=== PATIENT | male | born 1950 | race African-American/Black ===

== ENCOUNTER 2016-07-31 20:23 | Inpatient (IN) | payer OTHER, MEDICAID ==
[~2016-07-31] VITALS: Ht 179.1 cm; Wt 74.9 kg
[~2016-07-31 20:23] MED LIST: ALBU0.08 HHN; ASPI81CH43 PO; ATOR20TA PO; CARV12.544 PO; ENAL2.5T PO; FURO40TA4 PO; MAGN400T23 PO; NITR0.2D12 TD; OXY5T GT; RANO500T PO; SPIR25TA89 PO
[2016-07-31] MEDS ORDERED: FAMOTIDINE (10MG/ML) 2ML VL IV ONE (21:30)
[2016-07-31] MEDS ORDERED: IPRATROPIUM BROM 0.5 MG/2.5ML INH SOL NEB ONE (21:30)
[2016-07-31] MEDS ORDERED: ONDANSETRON HCL 4 MG/2 ML VIAL IV ONE (21:30)
[2016-07-31] MEDS ORDERED: ALBUTEROL SULF 2.5 MG/0.5ML(0.5%) NEB SOLN NEB ONE (21:30)
[2016-07-31 21:55] LABS: Basophils # (auto) 0 uL; Eosinophils # (auto) 0 uL; Hematocrit 40.5 % (41.0-53.0); Hemoglobin 13.2 g/dL (13.5-17.5); Lymphocytes # (auto) 0.6 uL; Lymphocytes % (auto) 4.1 % (10.0-50.0); Mean Corpuscular Hemoglobin 28.8 pg (28.0-32.0); Mean Corpuscular Hgb Conc. 32.5 g/dL (32.0-36.0); Mean Corpuscular Volume 88.6 fL (80.0-100.0); Mean Platelet Volume 10.6 fL (7.4-10.4); Monocytes # (auto) 0.7 uL; Monocytes % (auto) 4.5 % (0.0-12.0); Neutrophils # (auto) 14.3 uL; Neutrophils % (auto) 91.4 % (37.0-80.0); Platelet Count (auto) 154 10^3/uL (140-450); White Blood Cell 15.7 10^3/uL (4.4-10.8)
[2016-07-31 22:21] LABS: Albumin 3.7 g/dL (3.4-5.0); BUN/Creatinine Ratio 24.9; Bilirubin, Total 0.5 mg/dL (0.2-1.0); Calcium 8.8 mg/dL (8.5-10.1); Total Protein 6.9 g/dL (6.4-8.2)
[2016-07-31 22:39] LABS: Potassium 5.6 mmol/L (3.5-5.1)
[2016-07-31 22:48] LABS: B-Type Natriuretic Peptide 1567.5 pg/mL (0-100); Temperature: 23.4 C (20.0-25.0)
[2016-07-31] MEDS ORDERED: SODIUM POLYSTYRENE SULF 15GM/60ML SUSP PO ONE (23:00)
[2016-08-01] VITALS (7 sets, daily range): BP systolic 91–115; BP diastolic 67–73
[2016-08-01] MEDS ORDERED: FUROSEMIDE 20 MG/2 ML VIAL IV ONE (00:15)
[2016-08-01] MEDS ORDERED: NITROGLYCERIN 0.4 MG SL TAB SL PRN (02:00)
[2016-08-01] MEDS ORDERED: guaiFENesin 200 MG/10 ML UD PO PRN (02:00)
[2016-08-01] MEDS ORDERED: MORPHINE SULF INJ 2 MG/ML SYRINGE 1ML IV PRN (02:00)
[2016-08-01] MEDS ORDERED: OXYCODONE W/ ACETAMINOPHEN 5/325MG TABLET PO PRN (02:15)
[2016-08-01 04:15] LABS: Urine Bilirubin Negative (Negative); Urine Blood Negative /uL (Negative); Urine Color Yellow (Yellow); Urine Glucose Normal (Normal); Urine Ketone Negative (Negative); Urine Nitrite Negative (Negative); Urine RBC <1 /hpf (0 - 3); Urine Squamous Epithelial Cell FEW /hpf (<5); Urine Urobilinogen Normal (Negative)
[2016-08-01 05:58] LABS: Basophils # (auto) 0 uL; Basophils % (auto) 0.2 % (0.0-2.0); Eosinophils # (auto) 0 uL; Hematocrit 38.3 % (41.0-53.0); Hemoglobin 12.7 g/dL (13.5-17.5); Lymphocytes # (auto) 0.9 uL; Lymphocytes % (auto) 6.8 % (10.0-50.0); Mean Corpuscular Hemoglobin 29.5 pg (28.0-32.0); Mean Corpuscular Hgb Conc. 33.1 g/dL (32.0-36.0); Mean Platelet Volume 10.3 fL (7.4-10.4); Monocytes # (auto) 0.9 uL; Monocytes % (auto) 6.7 % (0.0-12.0); Neutrophils # (auto) 11.1 uL; Neutrophils % (auto) 86.3 % (37.0-80.0); Platelet Count (auto) 144 10^3/uL (140-450); Red Cell Distribution Width 15.8 % (11.6-16.0); White Blood Cell 12.8 10^3/uL (4.4-10.8)
[2016-08-01 06:30] LABS: Calcium 8.6 mg/dL (8.5-10.1); Magnesium 2.7 mg/dL (1.6-2.6); Potassium 4.8 mmol/L (3.5-5.1)
[2016-08-01] MEDS ORDERED: CARVEDILOL 12.5 MG TAB PO SCH (10:00)
[2016-08-01] MEDS ORDERED: FUROSEMIDE 20 MG TAB PO SCH (10:00)
[2016-08-01] MEDS ORDERED: AZITHROMYCIN 500MG/D5W 250ML 250 ML IV SCH (10:00)
[2016-08-01] MEDS ORDERED: ENOXAPARIN SOD 30 MG/0.3 ML SYRINGE SC SCH (10:00)
[2016-08-01] MEDS ORDERED: cefTRIAXone 1GM/50ML D5W 50 ML IV SCH (10:00)
[2016-08-01] MEDS ORDERED: NITROGLYCERIN 0.2MG/HR TOPICAL PATCH TD SCH (10:00)
[2016-08-01] MEDS: ASPirin 81 mg TAB PO SCH (10:18)
[2016-08-01] MEDS: ENOXAPARIN SOD 40 MG/0.4 ML SYRINGE SC SCH (10:18)
[2016-08-01] MEDS: MAGNESIUM OXIDE 400 MG TAB PO SCH ×2 (10:18→22:15)
[2016-08-01] MEDS: IPRATROPIUM BROM 0.5 MG/2.5ML INH SOL NEB PRN ×2 (12:02→19:39)
[2016-08-01] MEDS: ALBUTEROL SULF 2.5 MG/0.5ML(0.5%) NEB SOLN NEB PRN ×2 (12:02→19:39)
[2016-08-01] MEDS ORDERED: CARVEDILOL 12.5 MG TAB PO ONE (15:15)
[2016-08-01] MEDS: CARVEDILOL 12.5 MG TAB PO SCH (22:00)
[2016-08-01] MEDS ORDERED: ATORVASTATIN 20 MG TAB PO SCH (22:00)
[2016-08-01] MEDS ORDERED: CARVEDILOL 3.125 MG TAB ONE (22:06)
[2016-08-02 04:45] VITALS: BP 103/80
[2016-08-02 07:03] LABS: Potassium 4.5 mmol/L (3.5-5.1)
[2016-08-02 07:11] LABS: BUN/Creatinine Ratio 25.1; Calcium 8.3 mg/dL (8.5-10.1)
[2016-08-02] MEDS: ENOXAPARIN SOD 40 MG/0.4 ML SYRINGE SC SCH (08:46)
[2016-08-02] MEDS: MAGNESIUM OXIDE 400 MG TAB PO SCH (08:46)
[2016-08-02] MEDS: CARVEDILOL 12.5 MG TAB PO SCH (08:46)
[2016-08-02] MEDS: ASPirin 81 mg TAB PO SCH (08:46)
[2016-08-02 09:00] VITALS: BP 149/51
[2016-08-02] MEDS ORDERED: OMEP20CA5 PO (12:29)
[2016-08-02] MEDS ORDERED: LACT10SO PO (12:29)
[2016-08-02] MEDS ORDERED: LACTULOSE 20Gm/30ML SOLN PO ONE (12:30)
[2016-08-02 13:13] VITALS: BP 115/79
== END 2016-08-02 14:15 | disposition home or self-care (01) | DRG 312 ==
LOC: ER 20:25 → TELE 20:26 → TELE-EAST 08-01 03:45
PROVIDERS: ADMIT Internal Medicine; ATTEND Hospitalist
DX: I95.2 Hypotension due to drugs (principal); I13.0 Hypertensive heart and chronic kidney disease with heart failure and stage 1 through stage 4 chronic kidney disease, or unspecified chronic kidney disease; I42.0 Dilated cardiomyopathy; E11.22 Type 2 diabetes mellitus with diabetic chronic kidney disease; E87.5 Hyperkalemia; F17.210 Nicotine dependence, cigarettes, uncomplicated; I25.5 Ischemic cardiomyopathy; K21.9 Gastro-esophageal reflux disease without esophagitis; J44.9 Chronic obstructive pulmonary disease, unspecified; K59.00 Constipation, unspecified; I50.9 Heart failure, unspecified; N18.3 Chronic kidney disease, stage 3 (moderate); T50.0X5A Adverse effect of mineralocorticoids and their antagonists, initial encounter; Y92.89 Other specified places as the place of occurrence of the external cause; Z79.899 Other long term (current) drug therapy; Z82.49 Family history of ischemic heart disease and other diseases of the circulatory system; Z83.3 Family history of diabetes mellitus; Z86.73 Personal history of transient ischemic attack (TIA), and cerebral infarction without residual deficits; Z95.1 Presence of aortocoronary bypass graft; Z79.82 Long term (current) use of aspirin
CPT/HCPCS: 36415; 36600; 71020; 80048; 80053; 81001; 82805; 83735; 83880; 84132; 84484; 85025; 87040; 87070; 87081; 87205; 94640; 96374; 96375; G0434; J0696; J2405; J3490

== ENCOUNTER 2016-08-07 06:35 | Observation (INO) | payer OTHER, MEDICAID ==
[~2016-08-07] VITALS: Ht 177.8 cm; Wt 81.6 kg
[~2016-08-07 06:35] MED LIST changes: -ENAL2.5T PO; +LACT10SO PO; +OMEP20CA5 PO; -SPIR25TA89 PO
[2016-08-07 07:56] LABS: Basophils # (auto) 0 uL; DEFINITIVE VIEW TRANSMISSION; Eosinophils # (auto) 0 uL; Eosinophils % (auto) 0.1 % (0.0-7.0); Hemoglobin 13.4 g/dL (13.5-17.5); Mean Corpuscular Hemoglobin 29.6 pg (28.0-32.0); Mean Corpuscular Hgb Conc. 33.7 g/dL (32.0-36.0); SUSPECT VIEW TRANSMISSION
[2016-08-07 07:58] LABS: Basophils % (auto) 0.3 % (0.0-2.0); Hematocrit 39.6 % (41.0-53.0); Lymphocytes # (auto) 1.3 uL; Lymphocytes % (auto) 10.8 % (10.0-50.0); Mean Platelet Volume 10.4 fL (7.4-10.4); Monocytes # (auto) 1.9 uL; Neutrophils # (auto) 8.6 uL; Neutrophils % (auto) 72.8 % (37.0-80.0); Platelet Count (auto) 176 10^3/uL (140-450); White Blood Cell 11.8 10^3/uL (4.4-10.8)
[2016-08-07] MEDS: SODIUM CHLORIDE 0.9% 1,000 ML IV ONE ×2 (08:00→08:14)
[2016-08-07 08:25] LABS: Albumin 3.6 g/dL (3.4-5.0); BUN/Creatinine Ratio 26.6; Bilirubin, Total 1.8 mg/dL (0.2-1.0); Calcium 8.5 mg/dL (8.5-10.1); Magnesium 2.7 mg/dL (1.6-2.6); Potassium 4.5 mmol/L (3.5-5.1); Total Protein 6.8 g/dL (6.4-8.2)
[2016-08-07 08:26] LABS: Partial Thromboplastin Time 26.6 sec (22.64-33.71)
[2016-08-07 08:45] LABS: INR 1.43 (0.9-1.15); Prothrombin Time 15.4 sec (9.37-12.3)
[2016-08-07 09:42] LABS: Urine Bilirubin Negative (Negative); Urine Blood Negative /uL (Negative); Urine Color Yellow (Yellow); Urine Glucose Normal (Normal); Urine Hyaline Cast FEW /lpf (0 - 2); Urine Ketone Negative (Negative); Urine Nitrite Negative (Negative); Urine RBC 1 /hpf (0 - 3); Urine Squamous Epithelial Cell FEW /hpf (<5); Urine Urobilinogen Normal (Negative); Urine pH 5.5 (5.0-8.0)
[2016-08-07 11:40] VITALS: BP 122/92
[2016-08-08] MEDS ORDERED: CLOP75TA28 PO (02:56)
[2016-08-08] MEDS ORDERED: SPIR25TA89 PO (02:56)
[2016-08-08] MEDS ORDERED: PRE5T PO (02:56)
== END 2016-08-07 12:00 | disposition left against medical advice (07) | DRG 291 ==
LOC: EDBD 06:35 → ER 06:39 → OVERFLOW 07:51 → ER 12:00
PROVIDERS: ADMIT Emergency Medicine; ATTEND Emergency Medicine
DX: I13.0 Hypertensive heart and chronic kidney disease with heart failure and stage 1 through stage 4 chronic kidney disease, or unspecified chronic kidney disease (principal); I50.21 Acute systolic (congestive) heart failure; I24.9 Acute ischemic heart disease, unspecified; N18.3 Chronic kidney disease, stage 3 (moderate); J44.9 Chronic obstructive pulmonary disease, unspecified; R74.9 Abnormal serum enzyme level, unspecified; I25.10 Atherosclerotic heart disease of native coronary artery without angina pectoris; R51 Headache; R42 Dizziness and giddiness; R79.89 Other specified abnormal findings of blood chemistry; Z86.73 Personal history of transient ischemic attack (TIA), and cerebral infarction without residual deficits; Z95.0 Presence of cardiac pacemaker; Z95.1 Presence of aortocoronary bypass graft; Z95.810 Presence of automatic (implantable) cardiac defibrillator
CPT/HCPCS: 36415; 70450; 71020; 80053; 80320; 81001; 83735; 84443; 84484; 85025; 85379; 85610; 85730; 93005; 96360; 96361; 99285; G0378; J7030

== ENCOUNTER 2016-08-07 14:01 | Inpatient (IN) | payer OTHER, MEDICAID ==
[~2016-08-07] VITALS: Ht 177.8 cm; Wt 66.2 kg
[2016-08-07] MEDS ORDERED: IPRATROPIUM BROM 0.5 MG/2.5ML INH SOL NEB ONE (23:00)
[2016-08-07] MEDS ORDERED: ALBUTEROL SULF 2.5 MG/0.5ML(0.5%) NEB SOLN NEB ONE (23:00)
[2016-08-08] MEDS ORDERED: FUROSEMIDE 20 MG/2 ML VIAL IV ONE (00:30)
[2016-08-08] MEDS ORDERED: ENOXAPARIN SOD 100 MG/1 ML SYRINGE SC ONE (01:00)
[2016-08-08] MEDS ORDERED: ALBUTEROL SULF 2.5 MG/0.5ML(0.5%) NEB SOLN NEB PRN (01:00)
[2016-08-08] MEDS ORDERED: ACETAMINOPHEN 325 MG TAB PO PRN (01:00)
[2016-08-08] MEDS ORDERED: NITROGLYCERIN 0.4 MG SL TAB SL PRN (01:00)
[2016-08-08] MEDS ORDERED: ONDANSETRON HCL 4 MG/2 ML VIAL IV PRN (01:00)
[2016-08-08] MEDS ORDERED: TEMAZEPAM 15 MG CAP PO PRN (01:00)
[2016-08-08] MEDS ORDERED: MORPHINE SULF INJ 2 MG/ML SYRINGE 1ML IV PRN ×2 (01:00)
[2016-08-08] MEDS ORDERED: DEXTROSE (50%) 50ML SYRG IV PRN (01:00)
[2016-08-08] MEDS ORDERED: HYDROcodone-ACET 5/325MG TAB PO PRN (01:00)
[2016-08-08 02:24] VITALS: BP 123/76
[2016-08-08] MEDS ORDERED: PRE5T PO (02:56)
[2016-08-08] MEDS ORDERED: SPIR25TA89 PO (02:56)
[2016-08-08] MEDS ORDERED: CLOP75TA28 PO (02:56)
[2016-08-08 05:00] VITALS: BP 133/90
[2016-08-08] MEDS: ACCU-CHEK COMFORT CURVE STRIP VI SCH ×2 (06:25→12:00)
[2016-08-08] MEDS: InsuLIN REG 1unit/0.01ml Soln (100units/ml) SC SCH ×2 (06:26→12:00)
[2016-08-08 08:10] VITALS: BP 128/84
[2016-08-08 09:00] VITALS: BP 128/84
[2016-08-08] MEDS ORDERED: GEMFIBROZIL 600 MG TAB PO SCH (10:00)
[2016-08-08] MEDS ORDERED: ASPirin 81 mg TAB PO SCH (10:00)
[2016-08-08] MEDS ORDERED: FAMOTIDINE 20 MG TAB PO SCH (10:00)
[2016-08-08] MEDS ORDERED: FUROSEMIDE 40 MG TAB PO SCH (10:00)
[2016-08-08] MEDS ORDERED: RANEXA 500 MG PO SCH (10:00)
[2016-08-08] MEDS ORDERED: CARVEDILOL 12.5 MG TAB PO SCH ×2 (10:00→22:00)
[2016-08-08] MEDS ORDERED: ENOXAPARIN SOD 40 MG/0.4 ML SYRINGE SC SCH (10:00)
[2016-08-08] MEDS ORDERED: CARVEDILOL 12.5 MG TAB PO ONE (11:00)
[2016-08-08 11:14] LABS: Basophils # (auto) 0 uL; Basophils % (auto) 0.2 % (0.0-2.0); DEFINITIVE VIEW TRANSMISSION; Eosinophils # (auto) 0 uL; Eosinophils % (auto) 0.1 % (0.0-7.0); Hematocrit 41.9 % (41.0-53.0); Hemoglobin 13.7 g/dL (13.5-17.5); Lymphocytes # (auto) 1.6 uL; Lymphocytes % (auto) 10.6 % (10.0-50.0); Mean Corpuscular Hemoglobin 29.1 pg (28.0-32.0); Mean Corpuscular Hgb Conc. 32.7 g/dL (32.0-36.0); Mean Corpuscular Volume 88.9 fL (80.0-100.0); Mean Platelet Volume 10.2 fL (7.4-10.4); Monocytes # (auto) 1.9 uL; Monocytes % (auto) 12.7 % (0.0-12.0); Neutrophils # (auto) 11.6 uL; Neutrophils % (auto) 76.4 % (37.0-80.0); Platelet Count (auto) 210 10^3/uL (140-450); SUSPECT VIEW TRANSMISSION; White Blood Cell 15.1 10^3/uL (4.4-10.8)
[2016-08-08 11:35] LABS: BUN/Creatinine Ratio 28.7; Calcium 8.8 mg/dL (8.5-10.1); Magnesium 2.8 mg/dL (1.6-2.6); Potassium 4.6 mmol/L (3.5-5.1)
[2016-08-08 12:34] VITALS: BP 113/78
== END 2016-08-08 15:08 | disposition home health service (06) | DRG 280 ==
LOC: ER 14:01 → TELE 14:02 → TELE-CENTR 08-08 02:05
PROVIDERS: ADMIT Nurse Practitioner; ATTEND Nurse Practitioner
DX: I21.4 Non-ST elevation (NSTEMI) myocardial infarction (principal); I50.23 Acute on chronic systolic (congestive) heart failure; I13.0 Hypertensive heart and chronic kidney disease with heart failure and stage 1 through stage 4 chronic kidney disease, or unspecified chronic kidney disease; J44.1 Chronic obstructive pulmonary disease with (acute) exacerbation; E11.22 Type 2 diabetes mellitus with diabetic chronic kidney disease; E78.5 Hyperlipidemia, unspecified; F17.210 Nicotine dependence, cigarettes, uncomplicated; I25.119 Atherosclerotic heart disease of native coronary artery with unspecified angina pectoris; I25.5 Ischemic cardiomyopathy; K72.90 Hepatic failure, unspecified without coma; N18.3 Chronic kidney disease, stage 3 (moderate); Z83.3 Family history of diabetes mellitus; Z86.73 Personal history of transient ischemic attack (TIA), and cerebral infarction without residual deficits; Z91.19 Patient's noncompliance with other medical treatment and regimen; Z95.1 Presence of aortocoronary bypass graft; Z95.810 Presence of automatic (implantable) cardiac defibrillator; Z82.49 Family history of ischemic heart disease and other diseases of the circulatory system; Z79.899 Other long term (current) drug therapy; Z88.2 Allergy status to sulfonamides; Z79.82 Long term (current) use of aspirin; Z82.61 Family history of arthritis; Z83.49 Family history of other endocrine, nutritional and metabolic diseases
CPT/HCPCS: 36415; 76705; 80048; 82962; 83690; 83735; 84484; 85025; 87081; 93005; 93970; 94640; 96372; 96374; J1815

== ENCOUNTER 2016-08-15 14:13 | Inpatient (IN) | payer OTHER, MEDICAID ==
[~2016-08-15] VITALS: Ht 221 cm; Wt 71.7 kg
[~2016-08-15 14:13] MED LIST changes: +CLOP75TA28 PO; +PRE5T PO; +SPIR25TA89 PO
[2016-08-15 16:21] LABS: Basophils # (auto) 0 uL; Eosinophils # (auto) 0 uL; Hematocrit 39.2 % (41.0-53.0); Hemoglobin 12.7 g/dL (13.5-17.5); Lymphocytes # (auto) 0.8 uL; Lymphocytes % (auto) 6.1 % (10.0-50.0); Mean Corpuscular Hemoglobin 28.4 pg (28.0-32.0); Mean Corpuscular Hgb Conc. 32.5 g/dL (32.0-36.0); Mean Corpuscular Volume 87.4 fL (80.0-100.0); Mean Platelet Volume 9.2 fL (7.4-10.4); Monocytes # (auto) 0.4 uL; Monocytes % (auto) 3.6 % (0.0-12.0); Neutrophils # (auto) 11.4 uL; Neutrophils % (auto) 90.3 % (37.0-80.0); Platelet Count (auto) 219 10^3/uL (140-450); Red Cell Distribution Width 16.5 % (11.6-16.0); White Blood Cell 12.6 10^3/uL (4.4-10.8)
[2016-08-15 16:43] LABS: Albumin 3.3 g/dL (3.4-5.0); BUN/Creatinine Ratio 29.8; Bilirubin, Total 1.9 mg/dL (0.2-1.0); Calcium 8.6 mg/dL (8.5-10.1); Magnesium 2.8 mg/dL (1.6-2.6); Potassium 4.8 mmol/L (3.5-5.1); Total Protein 6.3 g/dL (6.4-8.2)
[2016-08-15] MEDS ORDERED: OXYCODONE HCL 5MG TAB PO PRN (18:45)
[2016-08-15] MEDS ORDERED: NITROGLYCERIN 0.4 MG SL TAB SL PRN (18:45)
[2016-08-15] MEDS ORDERED: MORPHINE SULF INJ 2 MG/ML SYRINGE 1ML IV PRN (18:45)
[2016-08-15] MEDS ORDERED: LACTULOSE 20Gm/30ML SOLN PO PRN (19:15)
[2016-08-15] MEDS ORDERED: IPRATROPIUM BROM 0.5 MG/2.5ML INH SOL NEB PRN (20:00)
[2016-08-15] MEDS ORDERED: LEVOFLOXACIN 500MG 100 ML IV ONE (20:16)
[2016-08-15] MEDS: CARVEDILOL 12.5 MG TAB PO SCH (22:00)
[2016-08-15] MEDS: ATORVASTATIN 20 MG TAB PO SCH ×2 (22:00→22:20)
[2016-08-15] MEDS: ACETYLCYSTEINE 10 %(100MG/ML) SOL 4ML NEB SCH (22:00)
[2016-08-15] MEDS: ALBUTEROL SULF 2.5 MG/0.5ML(0.5%) NEB SOLN NEB SCH (22:00)
[2016-08-15] MEDS: RANOLAZINE ER 500 MG TAB PO SCH (22:20)
[2016-08-15] MEDS: MAGNESIUM OXIDE 400 MG TAB PO SCH (22:20)
[2016-08-15 23:30] VITALS: BP 105/72
[2016-08-15 23:38] VITALS: BP 117/74
[2016-08-15 23:50] VITALS: BP 107/71
[2016-08-16] MEDS: ALBUTEROL SULF 2.5 MG/0.5ML(0.5%) NEB SOLN NEB SCH ×6 (02:00→22:00)
[2016-08-16 06:00] VITALS: BP 98/72
[2016-08-16] MEDS ORDERED: FUROSEMIDE 40 MG TAB PO SCH (06:00)
[2016-08-16] MEDS: ACETYLCYSTEINE 10 %(100MG/ML) SOL 4ML NEB SCH ×3 (06:00→22:00)
[2016-08-16 06:06] LABS: Basophils # (auto) 0 uL; Basophils % (auto) 0.1 % (0.0-2.0); Eosinophils # (auto) 0 uL; Hematocrit 42.6 % (41.0-53.0); Hemoglobin 13.3 g/dL (13.5-17.5); Lymphocytes # (auto) 0.6 uL; Lymphocytes % (auto) 3.8 % (10.0-50.0); Mean Corpuscular Hemoglobin 28.3 pg (28.0-32.0); Mean Corpuscular Hgb Conc. 31.3 g/dL (32.0-36.0); Mean Corpuscular Volume 90.6 fL (80.0-100.0); Mean Platelet Volume 9.6 fL (7.4-10.4); Monocytes # (auto) 1.3 uL; Monocytes % (auto) 7.7 % (0.0-12.0); Neutrophils # (auto) 15.1 uL; Neutrophils % (auto) 88.4 % (37.0-80.0); Platelet Count (auto) 228 10^3/uL (140-450); Red Cell Distribution Width 16.8 % (11.6-16.0); White Blood Cell 17.1 10^3/uL (4.4-10.8)
[2016-08-16] MEDS: FUROSEMIDE 40 MG/4 ML VIAL IV SCH ×2 (06:20→17:22)
[2016-08-16 06:45] LABS: BUN/Creatinine Ratio 29.1; Bilirubin, Total 1.9 mg/dL (0.2-1.0); Calcium 8.6 mg/dL (8.5-10.1); Total Protein 6.3 g/dL (6.4-8.2)
[2016-08-16 06:54] LABS: Potassium 5.8 mmol/L (3.5-5.1)
[2016-08-16 09:00] VITALS: BP 128/87
[2016-08-16] MEDS: RANOLAZINE ER 500 MG TAB PO SCH ×2 (10:00→22:50)
[2016-08-16] MEDS ORDERED: SPIRONOLACTONE 25 MG TAB PO SCH (10:00)
[2016-08-16] MEDS: ASPirin 81 mg TAB PO SCH (10:12)
[2016-08-16] MEDS: MAGNESIUM OXIDE 400 MG TAB PO SCH ×2 (10:13→22:51)
[2016-08-16] MEDS: CARVEDILOL 12.5 MG TAB PO SCH ×2 (10:14→22:51)
[2016-08-16] MEDS: CLOPIDOGREL BISULFATE 75 MG TAB PO SCH (10:14)
[2016-08-16 13:00] VITALS: BP 101/70
[2016-08-16] MEDS ORDERED: InsuLIN REG 1unit/0.01ml Soln (100units/ml) IV ONE (14:30)
[2016-08-16] MEDS ORDERED: DEXTROSE (50%) 50ML SYRG IV ONE (14:30)
[2016-08-16] MEDS ORDERED: SODIUM POLYSTYRENE SULF 15GM/60ML SUSP PO ONE (14:30)
[2016-08-16] MEDS ORDERED: CALCIUM GLUC 4.65 MEQ/10ML 4.65 MEQ in SODIUM CHL 0.9% 50 ML IV ONE (14:45)
[2016-08-16 17:08] VITALS: BP 110/68
[2016-08-16 17:51] LABS: Calcium 8.7 mg/dL (8.5-10.1); Potassium 5.3 mmol/L (3.5-5.1)
[2016-08-16 17:58] LABS: BUN/Creatinine Ratio 29.8
[2016-08-16] MEDS: LEVOFLOXACIN 250MG 50 ML IV SCH (22:50)
[2016-08-16] MEDS: ATORVASTATIN 20 MG TAB PO SCH (22:52)
[2016-08-17] VITALS (7 sets, daily range): BP systolic 84–128; BP diastolic 64–71
[2016-08-17] MEDS: ALBUTEROL SULF 2.5 MG/0.5ML(0.5%) NEB SOLN NEB SCH ×4 (02:58→19:55)
[2016-08-17] MEDS: FUROSEMIDE 40 MG/4 ML VIAL IV SCH (06:00)
[2016-08-17] MEDS: ACETYLCYSTEINE 10 %(100MG/ML) SOL 4ML NEB SCH ×2 (06:00→06:20)
[2016-08-17 07:11] LABS: BUN/Creatinine Ratio 35.8; Calcium 7.9 mg/dL (8.5-10.1); Phosphorus 5.7 mg/dL (2.5-4.90); Potassium 3.8 mmol/L (3.5-5.1); Total Protein 5.9 g/dL (6.4-8.2)
[2016-08-17] MEDS: MAGNESIUM OXIDE 400 MG TAB PO SCH ×2 (09:36→21:07)
[2016-08-17] MEDS: ASPirin 81 mg TAB PO SCH (09:46)
[2016-08-17] MEDS: RANOLAZINE ER 500 MG TAB PO SCH ×2 (09:46→21:39)
[2016-08-17] MEDS: CLOPIDOGREL BISULFATE 75 MG TAB PO SCH (09:47)
[2016-08-17] MEDS: CARVEDILOL 12.5 MG TAB PO SCH (09:47)
[2016-08-17] MEDS ORDERED: SODIUM CHLORIDE 0.9% 1,000 ML IV ONE (12:15)
[2016-08-17] MEDS ORDERED: SODIUM CHLORIDE 0.9% 750 ML IV ONE (17:00)
[2016-08-17] MEDS: MEXILETINE HYDROCHLORIDE 150 MG CAP PO SCH (18:41)
[2016-08-17] MEDS: ATORVASTATIN 20 MG TAB PO SCH (21:07)
[2016-08-17] MEDS: LEVOFLOXACIN 250MG 50 ML IV SCH (21:39)
[2016-08-18 05:00] VITALS: BP 99/65
[2016-08-18] MEDS: ALBUTEROL SULF 2.5 MG/0.5ML(0.5%) NEB SOLN NEB SCH ×2 (06:00→10:00)
[2016-08-18] MEDS: ACETYLCYSTEINE 10 %(100MG/ML) SOL 4ML NEB SCH (06:00)
[2016-08-18] MEDS: RANOLAZINE ER 500 MG TAB PO SCH (06:35)
[2016-08-18] MEDS: MEXILETINE HYDROCHLORIDE 150 MG CAP PO SCH (06:35)
[2016-08-18 06:40] LABS: Basophils # (auto) 0 uL; Eosinophils # (auto) 0 uL; Hematocrit 38.8 % (41.0-53.0); Hemoglobin 12.6 g/dL (13.5-17.5); Lymphocytes # (auto) 0.9 uL; Lymphocytes % (auto) 7.5 % (10.0-50.0); Mean Corpuscular Hemoglobin 28.4 pg (28.0-32.0); Mean Corpuscular Hgb Conc. 32.4 g/dL (32.0-36.0); Mean Corpuscular Volume 87.7 fL (80.0-100.0); Mean Platelet Volume 9.5 fL (7.4-10.4); Neutrophils # (auto) 9.5 uL; Neutrophils % (auto) 83.5 % (37.0-80.0); Platelet Count (auto) 185 10^3/uL (140-450); Red Cell Distribution Width 16.4 % (11.6-16.0); White Blood Cell 11.3 10^3/uL (4.4-10.8)
[2016-08-18 06:50] LABS: Albumin 2.9 g/dL (3.4-5.0); BUN/Creatinine Ratio 32.3; Bilirubin, Total 2.1 mg/dL (0.2-1.0); Calcium 7.8 mg/dL (8.5-10.1); Total Protein 5.9 g/dL (6.4-8.2)
[2016-08-18 08:00] VITALS: BP 111/73
[2016-08-18 09:23] VITALS: BP 111/73
[2016-08-18] MEDS ORDERED: FUROSEMIDE 40 MG/4 ML VIAL IV SCH (10:00)
[2016-08-18] MEDS: CLOPIDOGREL BISULFATE 75 MG TAB PO SCH (10:00)
[2016-08-18] MEDS: MAGNESIUM OXIDE 400 MG TAB PO SCH (11:08)
[2016-08-18] MEDS: ASPirin 81 mg TAB PO SCH (11:08)
[2016-08-18 12:49] VITALS: BP 104/78
[2016-08-18 13:49] VITALS: BP 111/73
[2016-08-19 07:06] LABS: Vitamin D 25-Hydroxy 29 ng/mL (.); Vitamin D-2 25-Hydroxy <1.0 ng/mL (.)
[2016-08-23] MEDS ORDERED: SPIR25TA88 PO (14:22)
[2016-08-23] MEDS ORDERED: CAR3125T PO (14:22)
[2016-08-23] MEDS ORDERED: OMEP20CA5 PO (14:22)
== END 2016-08-18 14:30 | disposition home health service (06) | DRG 871 ==
LOC: EDBD 14:13 → ER 14:13 → TELE 14:14 → SUATTDRO 18:38 → TELE-CENTR 23:17
PROVIDERS: ADMIT Nurse Practitioner Acute Care; ATTEND Internal Medicine
DX: A41.9 Sepsis, unspecified organism (principal); I50.43 Acute on chronic combined systolic (congestive) and diastolic (congestive) heart failure; N17.0 Acute kidney failure with tubular necrosis; I13.0 Hypertensive heart and chronic kidney disease with heart failure and stage 1 through stage 4 chronic kidney disease, or unspecified chronic kidney disease; J44.1 Chronic obstructive pulmonary disease with (acute) exacerbation; I47.2 Ventricular tachycardia; I25.10 Atherosclerotic heart disease of native coronary artery without angina pectoris; E78.5 Hyperlipidemia, unspecified; N40.0 Benign prostatic hyperplasia without lower urinary tract symptoms; E11.22 Type 2 diabetes mellitus with diabetic chronic kidney disease; E83.41 Hypermagnesemia; E87.5 Hyperkalemia; F17.200 Nicotine dependence, unspecified, uncomplicated; H54.41 Blindness, right eye, normal vision left eye; I49.3 Ventricular premature depolarization; K75.9 Inflammatory liver disease, unspecified; N18.3 Chronic kidney disease, stage 3 (moderate); Z79.82 Long term (current) use of aspirin; Z79.899 Other long term (current) drug therapy; Z82.49 Family history of ischemic heart disease and other diseases of the circulatory system; Z91.19 Patient's noncompliance with other medical treatment and regimen; Z83.3 Family history of diabetes mellitus; I25.2 Old myocardial infarction; Z95.1 Presence of aortocoronary bypass graft; Z91.14 Patient's other noncompliance with medication regimen; Z86.73 Personal history of transient ischemic attack (TIA), and cerebral infarction without residual deficits; Z95.810 Presence of automatic (implantable) cardiac defibrillator; Z88.2 Allergy status to sulfonamides; Z82.61 Family history of arthritis; Z83.49 Family history of other endocrine, nutritional and metabolic diseases; Z95.5 Presence of coronary angioplasty implant and graft; T40.695A Adverse effect of other narcotics, initial encounter; Y92.89 Other specified places as the place of occurrence of the external cause
CPT/HCPCS: 36415; 71010; 76775; 80048; 80053; 82306; 82570; 83735; 83970; 84156; 84300; 84484; 85025; 87081; 93005; 96374; 99291; J1815; J1956

== ENCOUNTER 2016-08-20 23:30 | Emergency (ER) | payer OTHER, MEDICAID ==
[~2016-08-20] VITALS: Ht 177.8 cm; Wt 65.8 kg
[~2016-08-20 23:30] MED LIST changes: -CARV12.544 PO; -CLOP75TA28 PO; -OMEP20CA5 PO; -OXY5T GT; -PRE5T PO; -RANO500T PO; -SPIR25TA89 PO
[2016-08-21 00:25] LABS: Basophils # (auto) 0 uL; Basophils % (auto) 0.1 % (0.0-2.0); Eosinophils # (auto) 0.1 uL; Eosinophils % (auto) 0.4 % (0.0-7.0); Hematocrit 38.7 % (41.0-53.0); Hemoglobin 12.4 g/dL (13.5-17.5); Lymphocytes # (auto) 0.4 uL; Lymphocytes % (auto) 2.6 % (10.0-50.0); Mean Corpuscular Hemoglobin 28.3 pg (28.0-32.0); Mean Corpuscular Hgb Conc. 31.9 g/dL (32.0-36.0); Mean Corpuscular Volume 88.6 fL (80.0-100.0); Mean Platelet Volume 9.1 fL (7.4-10.4); Monocytes # (auto) 0.7 uL; Monocytes % (auto) 4.2 % (0.0-12.0); Neutrophils # (auto) 14.8 uL; Neutrophils % (auto) 92.7 % (37.0-80.0); Platelet Count (auto) 155 10^3/uL (140-450); Red Cell Distribution Width 16.7 % (11.6-16.0)
[2016-08-21 00:38] LABS: Partial Thromboplastin Time 24.6 sec (22.64-33.71)
[2016-08-21 00:40] LABS: INR 1.18 (0.9-1.15); Prothrombin Time 12.7 sec (9.37-12.3)
[2016-08-21 00:43] LABS: Albumin 3.2 g/dL (3.4-5.0); Calcium 7.8 mg/dL (8.5-10.1); Magnesium 2.4 mg/dL (1.6-2.6); Potassium 4.7 mmol/L (3.5-5.1)
[2016-08-21 00:48] LABS: Bilirubin, Total 1.1 mg/dL (0.2-1.0); Total Protein 5.9 g/dL (6.4-8.2)
[2016-08-21 01:02] LABS: Temperature: 21.9 C (20.0-25.0)
[2016-08-21] MEDS ORDERED: MORPHINE SULFATE 4 MG/ML SYRG IV ONE (04:15)
[2016-08-21] MEDS ORDERED: ONDANSETRON HCL 4 MG/2 ML VIAL IV ONE (04:15)
[2016-08-21] MEDS ORDERED: PIPERACILLIN-TAZOB 3.375GM 100 ML IV ONE (04:30)
[2016-08-21] MEDS ORDERED: ENOXAPARIN SOD 80 MG/0.8ML SYRINGE SC ONE (04:30)
[2016-08-21] MEDS ORDERED: FUROSEMIDE 40 MG/4 ML VIAL IV ONE (04:30)
[2016-08-21 05:52] VITALS: BP 103/86
[2016-08-21 05:52] LABS: Lactic Acid w/Reflex 2.4 mmol/L (0.4-2.0)
[2016-08-21 06:22] LABS: REFLEX LACTIC ACID YES OR NO YES
[2016-08-23] MEDS ORDERED: OMEP20CA5 PO (14:22)
[2016-08-23] MEDS ORDERED: SPIR25TA88 PO (14:22)
[2016-08-23] MEDS ORDERED: CAR3125T PO (14:22)
== END 2016-08-21 06:50 | disposition left against medical advice (07) ==
LOC: ER 23:30
DX: I13.0 Hypertensive heart and chronic kidney disease with heart failure and stage 1 through stage 4 chronic kidney disease, or unspecified chronic kidney disease (principal); I50.9 Heart failure, unspecified; E11.22 Type 2 diabetes mellitus with diabetic chronic kidney disease; N18.9 Chronic kidney disease, unspecified; I25.810 Atherosclerosis of coronary artery bypass graft(s) without angina pectoris; J44.9 Chronic obstructive pulmonary disease, unspecified; E78.5 Hyperlipidemia, unspecified; I25.2 Old myocardial infarction; Z88.1 Allergy status to other antibiotic agents; F17.210 Nicotine dependence, cigarettes, uncomplicated
CPT/HCPCS: 36415; 71020; 74176; 80053; 83605; 83735; 83880; 84484; 85025; 85610; 85730; 87040; 93005; 96365; 96375; 99285; J1940; J2543; J2405

== ENCOUNTER 2016-09-10 22:21 | Emergency (ER) | payer OTHER, MEDICAID ==
[~2016-09-10] VITALS: Ht 170.2 cm; Wt 77.1 kg
[~2016-09-10 22:21] MED LIST changes: +CAR3125T PO; +OMEP20CA5 PO; +SPIR25TA88 PO
[2016-09-11 01:46] LABS: Basophils # (auto) 0.1 uL; Basophils % (auto) 0.5 % (0.0-2.0); DEFINITIVE VIEW TRANSMISSION; Eosinophils # (auto) 0 uL; Eosinophils % (auto) 0.2 % (0.0-7.0); Hematocrit 43.4 % (41.0-53.0); Hemoglobin 13.8 g/dL (13.5-17.5); Lymphocytes # (auto) 1.8 uL; Lymphocytes % (auto) 12.6 % (10.0-50.0); Mean Corpuscular Hgb Conc. 31.7 g/dL (32.0-36.0); Mean Corpuscular Volume 85.1 fL (80.0-100.0); Mean Platelet Volume 9.6 fL (7.4-10.4); Monocytes % (auto) 6.9 % (0.0-12.0); Neutrophils # (auto) 11.5 uL; Neutrophils % (auto) 79.8 % (37.0-80.0); Platelet Count (auto) 195 10^3/uL (140-450); Red Cell Distribution Width 16.3 % (11.6-16.0); SUSPECT VIEW TRANSMISSION; White Blood Cell 14.4 10^3/uL (4.4-10.8)
[2016-09-11 01:49] LABS: Albumin 3.5 g/dL (3.4-5.0); BUN/Creatinine Ratio 28.8; Calcium 8.5 mg/dL (8.5-10.1); Potassium 4.3 mmol/L (3.5-5.1)
[2016-09-11 01:50] LABS: Urine Bilirubin Negative (Negative); Urine Blood Negative /uL (Negative); Urine Color Yellow (Yellow); Urine Glucose Normal (Normal); Urine Hyaline Cast MOD /lpf (0 - 2); Urine Ketone Negative (Negative); Urine Nitrite Negative (Negative); Urine RBC <1 /hpf (0 - 3); Urine Squamous Epithelial Cell FEW /hpf (<5); Urine Urobilinogen Normal (Negative); Urine pH 5.5 (5.0-8.0)
[2016-09-11 01:54] LABS: Bilirubin, Total 1.5 mg/dL (0.2-1.0); Total Protein 6.6 g/dL (6.4-8.2)
[2016-09-11] MEDS ORDERED: FUROSEMIDE 20 MG/2 ML VIAL IV ONE (03:00)
[2016-09-11 04:01] VITALS: BP 112/55
[2016-09-11 04:06] LABS: Temperature: 20.8 C (20.0-25.0)
[2016-09-13] MEDS ORDERED: LEVE500T22 PO (16:28)
== END 2016-09-11 04:11 | disposition home or self-care (01) ==
LOC: EDBD 22:21 → ER 22:39
DX: I50.9 Heart failure, unspecified (principal); R60.9 Edema, unspecified; I13.0 Hypertensive heart and chronic kidney disease with heart failure and stage 1 through stage 4 chronic kidney disease, or unspecified chronic kidney disease; J44.9 Chronic obstructive pulmonary disease, unspecified; I25.10 Atherosclerotic heart disease of native coronary artery without angina pectoris; N18.9 Chronic kidney disease, unspecified; E11.22 Type 2 diabetes mellitus with diabetic chronic kidney disease; E78.5 Hyperlipidemia, unspecified; I25.2 Old myocardial infarction; Z95.1 Presence of aortocoronary bypass graft; Z95.0 Presence of cardiac pacemaker
CPT/HCPCS: 36415; 71010; 80053; 81001; 83880; 84484; 85025; 93005; 94761; 96374; 99285; J1940

== ENCOUNTER 2016-09-15 13:48 | Emergency (ER) | payer OTHER, MEDICAID ==
[~2016-09-15 13:48] MED LIST changes: +LEVE500T22 PO
[2016-09-15 14:31] LABS: Basophils # (auto) 0 uL; Eosinophils # (auto) 0 uL; Eosinophils % (auto) 0.1 % (0.0-7.0); Hematocrit 45.1 % (41.0-53.0); Hemoglobin 14.4 g/dL (13.5-17.5); Lymphocytes # (auto) 0.8 uL; Lymphocytes % (auto) 6.9 % (10.0-50.0); Mean Corpuscular Hemoglobin 27.3 pg (28.0-32.0); Mean Corpuscular Hgb Conc. 31.9 g/dL (32.0-36.0); Mean Corpuscular Volume 85.5 fL (80.0-100.0); Mean Platelet Volume 9.5 fL (7.4-10.4); Monocytes # (auto) 0.7 uL; Monocytes % (auto) 6.3 % (0.0-12.0); Neutrophils # (auto) 9.5 uL; Neutrophils % (auto) 86.7 % (37.0-80.0); Platelet Count (auto) 156 10^3/uL (140-450); Red Cell Distribution Width 17.9 % (11.6-16.0)
[2016-09-15 14:58] LABS: Albumin 2.9 g/dL (3.4-5.0); BUN/Creatinine Ratio 28.3; Calcium 8.5 mg/dL (8.5-10.1); Magnesium 2.8 mg/dL (1.6-2.6)
[2016-09-15 15:02] LABS: Bilirubin, Total 2.5 mg/dL (0.2-1.0); Potassium 4.4 mmol/L (3.5-5.1); Total Protein 5.9 g/dL (6.4-8.2)
[2016-09-15] MEDS ORDERED: ACETAMINOPHEN 325 MG TAB PO ONE (18:00)
[2016-09-15 21:06] VITALS: BP 104/74
== END 2016-09-15 22:37 | disposition left against medical advice (07) ==
LOC: EDUNIT# 13:48 → ER 14:11
DX: G43.109 Migraine with aura, not intractable, without status migrainosus (principal); I25.810 Atherosclerosis of coronary artery bypass graft(s) without angina pectoris; J44.9 Chronic obstructive pulmonary disease, unspecified; I13.0 Hypertensive heart and chronic kidney disease with heart failure and stage 1 through stage 4 chronic kidney disease, or unspecified chronic kidney disease; N18.9 Chronic kidney disease, unspecified; I50.9 Heart failure, unspecified; E11.22 Type 2 diabetes mellitus with diabetic chronic kidney disease; E78.5 Hyperlipidemia, unspecified; F17.210 Nicotine dependence, cigarettes, uncomplicated; I25.2 Old myocardial infarction; Z95.0 Presence of cardiac pacemaker; Z98.61 Coronary angioplasty status; Z88.1 Allergy status to other antibiotic agents; Z53.29 Procedure and treatment not carried out because of patient's decision for other reasons
CPT/HCPCS: 36415; 70450; 71010; 80053; 83735; 84484; 85025; 93005; 99285; J7030